=== PATIENT | female | born 1980 | race Caucasian/White ===

== ENCOUNTER 2024-07-17 15:40 | Outpatient (CLI) | payer BC, SELFPAY ==
--- NOTE | ~2024-07-17 | MM_ITS ---
EXAMINATION: MM screening sergio BI w celestino HISTORY: Screening TECHNIQUE: Craniocaudal and mediolateral oblique 3-D tomosynthesis images were obtained and synthetic 2-D images were generated. CAD analysis was submitted and interpreted. COMPARISON: No prior mammogram is available for comparison at this institution. BREAST PARENCHYMAL COMPOSITION: Dense: The breasts are extremely dense, which lowers the sensitivity of mammography. FINDINGS: There are asymmetries in the medial aspect of the left breast as well as superiorly in the left breast, obscured by fibroglandular tissue. No mammographic evidence for malignancy in the right breast. IMPRESSION: 1. Left breast asymmetries 2. Additional spot compression and mediolateral views with possible follow-up breast ultrasound recom mended. BI-RADS Category 0: Incomplete: Needs additional imaging evaluation. Reviewed, dictated and finalized at location B. IMPRESSION: 1. Left breast asymmetries 2. Additional spot compression and mediolateral views with possible follow-up b reast ultrasound recommended. BI-RADS Category 0: Incomplete: Needs additional imaging evaluation.
== END 2024-07-17 15:41 ==
PROVIDERS: PCP Physician Assistant; Visit Provider Physician Assistant
DX: Z12.31 Encounter for screening mammogram for malignant neoplasm of breast (principal); R92.8 Other abnormal and inconclusive findings on diagnostic imaging of breast
CPT/HCPCS: 77063; 77067

== ENCOUNTER 2024-08-15 08:23 | Outpatient (CLI) | payer BC, SELFPAY ==
--- NOTE | ~2024-08-15 | MMUS_ITS ---
EXAMINATION: MM diagnostic sergio LT w celestino, US breast LT limited HISTORY: Left breast asymmetry TECHNIQUE: Additional 3-D tomosynthesis images of the left breast were performed and synthetic 2-D im ages were generated. CAD analysis was submitted and interpreted. High resolution limited left breast ultrasound was performed. COMPARISON: 07/17/2024 BREAST PARENCHYMAL COMPOSITION:Dense: The breasts are extremely dense, which lowers the sensitivity o f mammography. FINDINGS: MAMMOGRAPHIC FINDINGS: Questionable partially obscured 11 mm lobulated mass at the upper left breast, which rises on ML view . No definite correlate seen on CC view. ULTRASOUND: Scanning of the upper outer left breast demonstrates an 8 mm simple cyst at the 10:00 position left b reast, 5 cm from the nipple. There is an additional 7 mm simple cyst at the 10:00 position 3 cm from the nipple. There is an additional 0.8 cm simple cyst at the 12:00 position left breast, 5 cm from th e nipple. IMPRESSION: No distinct evidence for malignancy. Subcentimeter cysts at the upper, inner left breast, as detaile d above. BI-RADS Category 2: Benign finding(s). Reviewed, dictated and finalized at location M. IMPRESSION: No distinct evidence for malignancy. Subcentimeter cysts at the upper, inner l eft breast, as detailed above. BI-RADS Category 2: Benign finding(s).
== END 2024-08-15 08:24 | disposition home or self-care (01) ==
LOC: MICIMG 08:24
PROVIDERS: PCP Physician Assistant; Visit Provider Physician Assistant
DX: R92.8 Other abnormal and inconclusive findings on diagnostic imaging of breast (principal)
CPT/HCPCS: 76642; 77061; 77065; G0279

== ENCOUNTER 2025-06-21 12:24 | Emergency (ER) | payer BC, SELFPAY ==
--- OUTSIDE RECORDS SUMMARY | 2025-06-21 12:27 | XMS_ITS | Patient Health Record ---
Author Organization [facility] [employer] Address [address] [facility] [address] [place] [address] Care Team Providers Care Saturation Equipment Operator Name Role Phone Kris Walker Unavailable [phone] Rudolph Yoder Unavailable [phone] Allergies No Known Allergies Reason For Referral No Information Medications Medication SIG (Take, Route, Frequency, Duration) Notes Start Date End Date Status Vitamin D Active buPROPion HCl ER (XL) 300 MG 1 tablet every morning Oral Once a day; Duration: 90 days Active Biotin Active Sertraline HCl 100 MG 1.5 tablet Oral Once a day; Duration: 90 days Active JUNEL FE .04/24 (28) *Reorder from [employer] for eRx and Interaction Alerts* 03/19/2024 Not-Taking SELMA 24 FE 1 MG-20 MCG (24)/75 MG (4) TABLET *Reorder from [employer] for eRx and Interaction Alerts* 03/19/2024 Not-Taking AUROVELA 24 FE 1 MG-20 MCG (24)/75 MG (4) TABLET *Reorder from [employer] for eRx and Interaction Alerts* 03/19/2024 Not-Taking Junel Fe 24 1 mg-20 mcg (24)/75 mg (4) Oral *Pick strength-form from [employer] for eRX* 03/19/2024 Not-Taking Iron 325 mg (65 mg iron) Oral *Pick strength-form from [employer] for eRX* 03/19/2024 Active Social History Sex Assigned At : Social History Observation Description Sex Assigned At Female Problems Problem Type SNOMED Code ICD Code Onset Dates Problem Status W/U Status Risk Notes Problem Mild recurrent major depression (47659200) Major depressive disorder, recurrent, mild (F33.0) 4 Active confirmed Problem Generalized anxiety disorder (41974945) Generalized anxiety disorder (F41.1) 4 Active confirmed Vital Signs Heart Rate 85 /min 04/06/2025 Height-cm 162.56 cm 04/06/2025 Blood pressure diastolic 67 mm Hg 04/06/2025 Weight-kg 69.85 kg 04/06/2025 Height 64.00 in 04/06/2025 Blood pressure systolic 97 mm Hg 04/06/2025 Weight 154 lbs 04/06/2025 BMI 26.43 kg/m2 04/06/2025 Encounters Encounter Location Date Provider Diagnosis [facility] [employer] [facility], [facility] [address] [place] [address] 01/08/2025 Rudolph Yoder Major depressive disorder, recurrent, mild F33.0 and Generalized anxiety disorder F41.1 [facility] [employer] [facility] [address] [place] [address] 04/06/2025 Kris Walker Encounter for screen ing for cardiovascular disorders Z13.6 ; Encounter for screening for depression Z13.31 ; Major depressive disorder, recurrent, mild F33.0 and Generalized anxiety disorder F41.1 Assessments Encounter Date Diagnosis (ICD Code) Assessment Notes Treatment Notes Treatment Clinical Notes Section Notes 01/08/2025 Major depressive disorder, recurrent, mild (ICD-10 - F33.0) 04/06/2025 Encounter for screening for cardiovascular disorders (ICD-10 - Z13.6) 04/06/2025 Encounter for screening for depression (ICD-10 - Z13.31) 01/08/2025 Generalized anxiety disorder (ICD-10 - F41.1) 04/06/2025 Major depressive disorder, recurrent, mild (ICD-10 - F33.0) 04/06/2025 Generalized anxiety disorder (ICD-10 - F41.1) 01/08/2025 Other 1. Major Depressive Disorder - currently rates her depression at 02/02. - Currently on Bupropion 300mg and Sertraline 150mg daily. - PHQ-9 score: 5, indicating mild depression. - Patient reports feeling stable on current medications. - Plan: a. Continue Bupropion 300mg and Sertraline 150mg daily. b. Refill prescriptions for 3 months. c. Schedule follow-up appointment in 3 months. 2. Anxiety - SERENA-7: 3 - current anxiety at 01/05 - Plan: Monitor anxiety levels during follow-up appointment. 3. Sleep - No significant issues reported. - Plan: Continue to monitor sleep patterns during follow-up appointments. 4. Substance Use - Denies marijuana use. - Reports minimal alcohol consumption (approximately one drink per month). - Plan: Continue to monitor substance use during follow-up appointments. 5. Gun Safety - Reports having a gun in a safe at home. - Plan: Reinforce importance of gun safety, including: a. Storing ammunition separately. b. Using gun locks. c. Maintaining a secure gun safe. 6. Overall Mental Health - Denies suicidal ideation, self-harm, hallucinations, delusions, or paranoia. - Plan: a. Continue to monitor mental health during follow-up appointments. b. Encourage patient to report any changes or concerns. 04/06/2025 Other Nikole Foley, an adult female patient with a history of depression and anxiety, presents for medication refill and follow-up. Major Depressive Disorder Assessment: Patient reports feeling pretty stable with current medication regimen. She denies any significant concerns regarding depression. Sleep patterns remain consistent with her baseline, reporting she is always able to sleep and always wanting to sleep. Energy levels are reported as okay. No mood swings or other depressive symptoms are reported. Plan: - Continue bupropion XL 300 mg PO daily - Continue sertraline 150 mg PO daily - Follow up in 6 months Generalized Anxiety Disorder Assessment: Patient denies any significant anxiety concerns beyond normal life stressors. No recent panic attacks reported. Current medication regimen appears to be effectively managing anxiety symptoms. Plan: - Continue current medication regimen as noted above - Follow up in 6 months Obstructive Sleep Apnea Assessment: Patient confirms continued use of CPAP for sleep apnea management. Plan: - Continue CPAP use as prescribed the note is transcribed using speech recognition software. It is a reflection of a visit with the patient. It might have some inaccuracy, including medication names and transcribing errors, though efforts have been made to correct them. Plan Of Treatment Next Appt Details Provider Name:Kris hughes, 10/06/2025 01:00:00 PM, [address] [address], [facility] [address], [place], [address], Insurance Providers Payer Name Payer Address Payer Phone Subscriber Number Group Number Insured Name Patient Relationship to Insured Coverage Start Date Coverage End Date [facility] [address] [place] [address] [id number] KIMI NIKOLE Self - patient is the insured Medical (General) History Medical History History ICD Code Problems: Generalized anxiety disorder Mild recurrent major depression Surgical History Surgery Date(Month/Year) Other 04/23/2012
--- OUTSIDE RECORDS SUMMARY | 2025-06-21 12:27 | XMS_ITS | Encounter Summary ---
Author Organization [facility] Address [address] [place] [address] Phone Care Team Providers Care Flow Coordinator Name Role Phone Shelton Campa MD Primary Care Provider [phone] Encounter Details Date Type Department Care Team (Late st Contact Info) Description 10/05/2023 [facility] [address] [place] [address] Magui Campa MD [address] [place] [id number] Social History Tobacco Use Types Packs/Day Years Used Date Smoking Tobacco: Never Smokeless Tobacco: Never Alcohol Use Standard Drinks/Week Comments Yes 1 (1 standard drink = 0.6 oz pur e alcohol) Comments Unknown Sex and Gender Information Value Date Recorded Sex Assigned at Not on file 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 [employer] Gender Identity Not on file Sexual Orientation Not on file documented as of this encounter Plan of Treatment Upcoming Encounters Date Type Department Care Team (Late st Contact Info) Description 09/01/2025 2:30 PM CDT Office Visit [facility] [address] [place] [phone] Fauzia Palacio, CALL CENTER SUPPORT CONSULTANT, CUTTING INSPECTOR [address] [place] [address] documented as of this encounter Procedures Procedure Name Priority Date/Time Associated Diagnosis Comments CHLAMYDIA & GC DNA PROBE ADULT Routine 10/05/2023 1:00 PM [employer] VAGINITIS SCREEN, MOLECULAR Routine 10/05/2023 1:00 PM [employer] PATHOLOGY CYTOLOGY CHILLER TECHNICIAN Routine 10/05/2023 1:00 PM [employer] HUMAN PAPILLOMA VIRUS (HPV) Routine 10/05/2023 1:00 PM [employer] CHLAMYDIA & GC DNA PROBE Routine 10/05/2023 1:00 PM [employer] documented in this encounter Results * CHLAMYDIA & GC DNA PROBE > 12 (10/05/2023 1:00 PM [employer]) CHLAMYDIA DNA NEGATIVE NEGATIVE 10/07/2023 12:03 PM [employer] [facility] Comment: Presumed negative for C. trachomatis. A negative result does not preclude C. trachomatis infection because results are dependent on adequate specimen collection, absence of inhibitors, and sufficient DNA to be detected. This test was performed using Polymerase Chain Reaction (PCR) on the [employer] 4800 System. GC DNA NEGATIVE NEGATIVE 10/07/2023 12:03 PM [employer] [facility] Comment: Presumed negative for N. gonorrhoeae. A negative result does not preclude N. gonorrhoeae infection because results are dependent on adequate specimen collection, absence of inhibitors, and sufficient DNA to be detected. This test was performed using Polymerase Chain Reaction (PCR) on the [employer] 4800 System. Other URINE / Unknown 10/05/2023 1 :00 PM [employer] 10/05/2023 8:48 PM [employer] us Magui Campa MD MICROBIOLOGY - GENERAL ORDERABL ES Final Result [facility] [address] [facility] [place] [address], * VAGINITIS SCREEN, MOLECULAR (10/05/2023 1:00 PM [employer]) TRICHOMONAS Negative Negative 10/05/2023 10:55 PM [employer] [facility] BACTERIAL VAGINOSIS Negative Negative 10/05/2023 10:55 PM [employer] [facility] VALERIA Negative Negative 10/05/2023 10:55 PM [employer] [facility] Other VAGINAL STRUCTURE / Unknown 10/05/2023 1:00 PM [employer] 10/05/2023 8:54 PM [employer] us Magui Campa MD MICROBIOLOGY - GENERAL ORDERABL ES Final Result [facility] [address] [place] [address], * HUMAN PAPILLOMA VIRUS (HPV) (10/05/2023 1:00 PM [employer]) HPV OTHER HIGH RISK TYPES, PCR NEGATIVE NEGATIVE 10/08/2023 3:20 PM [employer] [facility] Comment: The following Other High Risk types were not detected: 31, 33, 35, 39, 45, 51, 52, 56, 58, 59, 66, and 68. A negative high-risk HPV result does not exclude the possibility of future cytologic HSIL or underlying CIN2-3 or cancer. The presence of PCR inhibitors may cause false negative or invalid results. If concentrations of whole blood in the sample exceed 1.5% (dark red or brown coloration) in PreservCyt solution, there is a likelihood of obtaining a false-negative result. HPV TYPE 16 NEGATIVE NEGATIVE 10/08/2023 3:20 PM [employer] [facility] Comment: A negative high-risk HPV result does not exclude the possibility of future cytologic HSIL or underlying CIN2-3 or cancer. The presence of PCR inhibitors may cause false negative or invalid results. If concentrations of whole blood in the sample exceed 1.5% (dark red or brown coloration) in PreservCyt solution, there is a likelihood of obtaining a false-negative result. HPV TYPE 18 NEGATIVE NEGATIVE 10/08/2023 3:20 PM [employer] [facility] Comment: A negative high-risk HPV result does not exclude the possibility of future cytologic HSIL or underlying CIN2-3 or cancer. The presence of PCR inhibitors may cause false negative or invalid results. If concentrations of whole blood in the sample exceed 1.5% (dark red or brown coloration) in PreservCyt solution, there is a likelihood of obtaining a false-negative result. Other 10/05/2023 1:00 PM [employer] 10/05/2023 8:53 PM [employer] Narrative [facility] - 10/08/2023 3:20 PM [employer] Performed by Real-Time Polymerase Chain Reaction (PCR) on the [employer] 4800. This assay has been validated for use with post-aliquot samples from the [employer] T5000 processor. us Magui Campa MD LAB SEND OUTS Final Result [facility] [address] [place] [address], * PATHOLOGY CYTOLOGY CHILLER TECHNICIAN (10/05/2023 1:00 PM [employer]) SPECIMEN ADEQUACY Satisfactory for evaluation. Endocervical/transf ormation zone component is absent. 10/14/2023 9:27 PM [employer] [facility] DESCRIPTIVE DIAGNOSIS NEGATIVE FOR INTRAEPITHELIAL LESIONS OR MALIGNANCY. 10/14/2023 9:27 PM [employer] [facility] at [address] [employer] Automated Examination Analysis of this sample has been assisted by an automated imaging and review system ([employer] System, [employer], [place], [place]). This case is further evaluated and finalized by a employee's representative and/or pathologist. 10/14/2023 9:27 PM [employer] [facility] Disclaimer The PAP smear is a screening test designed to detect cancerous or precancerous cells of the uterine cervix. It is one of the best means available for detection of cervical cancer but still carries an inherent false-negative rate. The consequences of a false-negative PAP result can be minimized by adhering to current screening guidelines. The following are general guidelines recommended by the ACS, ASCP, ASCCP, and ACOG: PAP testing is recommended every three years for women 21-29, Co-Testing, a PAP test in conjunction with an HPV (Human Papillomavirus) test for women ages 30-65, and no PAP or HPV testing for women under the age of 21 or older than 65 unless clinically indicated. 10/14/2023 9:27 PM [employer] [facility] Case Report Gynecologic Cytology Report Case: [id number] Authorizing Provider: Magui Campa MD Collected: 10/05/2023 01:00 PM Ordering Location: [facility] Received: 10/09/2023 09:01 AM [facility] First Screen: Freida Mcgill Specimen: TP Screen, Cervix/Endocervix 10/14/2023 9:27 PM [employer] [facility] Other CERVIX UTERI STRUCTURE / Unknown 10/05/2023 1:00 PM [employer] 10/09/2023 9:01 AM [employer] us Magui Campa MD PATHOLOGY/CYTOLOGY ORDERABLES F inal Result [facility] [address] [place] [address], documented in this encounter Visit Diagnoses Not on filedocumented in this encounter Care Teams Flow Coordinator Relationship Specialty Start Date End Date Shelton Campa MD [address] [facility] [address] [place] [address] PCP - General General Surgery 01/13/20 documented as of this encounter
--- OUTSIDE RECORDS SUMMARY | 2025-06-21 12:27 | XMS_ITS | Encounter Summary ---
Author Organization [facility] Address [address] [place] [address] Phone Care Team Providers Care Material Handler 2Nd Shift Name Role Phone Shelton Campa MD Primary Care Provider [phone] Encounter Details Date Type Department Care Team (Late Contact Info) Description 10/03/2023 [facility] [address] [place] [address] Shelton Campa MD [address] [place] [address] [place] [address] Social History Tobacco Use Types Packs/Day Years Used Date Smoking Tobacco: Never Smokeless Tobacco: Never Alcohol Use Standard Drinks/Week Comments Yes 1 (1 standard drink = 0.6 oz pur e alcohol) Comments Unknown Sex and Gender Information Value Date Recorded Sex Assigned at Not on file 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 Gender Identity Not on file Sexual Orientation Not on file documented as of this encounter Plan of Treatment Upcoming Encounters Date Type Department Care Team (Late st Contact Info) Description 09/01/2025 2:30 PM CDT Office Visit [facility] [address] [place] [address] Fauzia Palacio, NEWS CLERK, ACCIDENT INVESTIGATOR [address] [place] [address] documented as of this encounter Procedures Procedure Name Priority Date/Time Associated Diagnosis Comments ANTI THYROID PEROXIDASE ANTIBODY Routine 10/03/2023 8:41 AM PIECER documented in this encounter Results * ANTI THYROID PEROXIDASE ANTIBODY (10/03/2023 8:41 AM PIECER) Thyroid peroxidase antibody <3 <6 IU/mL [facility]CH [id number] F 10/04/2023 12:47 AM [facility]ER [facility] Blood 10/03/2023 8:41 AM PIECER 10/03/2023 8:54 PM PIECER us Shelton Campa MD CHEMISTRY ORDERABLES Final Re sult [facility] [address] [place] [address], documented in this encounter Visit Diagnoses Not on filedocumented in this encounter Care Teams Material Handler 2Nd Shift Relationship Specialty Start Date End Date Shelton Campa MD [address] [place] [address] [address] [place], [place] [address] PCP - General General Surgery 01/13/20 documented as of this encounter
--- OUTSIDE RECORDS SUMMARY | 2025-06-21 12:27 | XMS_ITS | Encounter Summary ---
Author Organization [facility] Address [address] [facility] [place] [address] Phone Care Team Providers Care Gis Developer Name Role Phone Shelton Campa MD Primary Care Provider [phone] Encounter Details Date Type Department Care Team ([facility] Contact Info) Description 04/13/2022 [facility] [address] [place] [address] Shelton Campa MD [address] [place] [address] [place] [address] Social History Tobacco Use Types Packs/Day Years Used Date Smoking Tobacco: Never Assessed Comments Unknown Sex and Gender Information Value Date Recorded Sex Assigned at Not on file Legal Sex Female 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 Gender Identity Not on file Sexual Orientation Not on file documented as of this encounter Plan of Treatment Upcoming Encounters Date Type Department Care Team ([facility] Contact Info) Description 09/01/2025 2:30 PM CDT Office Visit [facility] [address] [place] [phone] Fauzia Palacio, PHYSICIST NUCLEAR, EXTRUDING PRESS OPERATOR [address] [place] [address] documented as of this encounter Procedures Procedure Name Priority Date/Time Associated Diagnosis Comments TRIIODOTHYRININE (T3) FREE Routine 04/13/2022 8:55 AM CDT documented in this encounter Results * TRIIODOTHYRININE (T3) FREE (04/13/2022 8:55 AM CDT) FREE T3 2.3 1.6 - 3.9 pg/mL [facility] ARCH [id number] F 04/13/2022 10:53 PM CDT [facility] Blood 04/13/2022 8:55 AM CDT 04/13/2022 8:45 PM CDT us Shelton Campa MD CHEMISTRY ORDERABLES Final Re [facility]ult [facility] [address] [place] [address], documented in this encounter Visit Diagnoses Not on filedocumented in this encounter Care Teams Gis Developer Relationship Specialty Start Date End Date Shelton Campa MD [address] [facility] [address] [place] [address] PCP - General General Surgery 01/13/20 documented as of this encounter
--- OUTSIDE RECORDS SUMMARY | 2025-06-21 12:27 | XMS_ITS | Encounter Summary ---
Author Organization [facility] Address [address] [place] [address] Phone Care Team Providers Care Rn Hyperbaric Name Role Phone Shelton Campa MD Primary Care Provider [phone] Reason for Visit * Reason Onset Date Comments Obstructive Sleep Apnea 12/19/2024 CPAP sup ply order Encounter Details Date Type Department Care Team (Late st Contact Info) Description 12/19/2024 Telephone [facility] [address] [place] [address] Rep, [facility] Intake Obstructive Sleep Apnea (CPAP supply order) Social History Tobacco Use Types Packs/Day Years Used Date Smoking Tobacco: Never Smokeless Tobacco: Never Alcohol Use Standard Drinks/Week Comments Yes 1 (1 standard drink = 0.6 oz pur e alcohol) Comments Unknown Sex and Gender Information Value Date Recorded Sex Assigned at Not on file Legal Sex Female 1:30 PM SOAKER Gender Identity Not on file Sexual Orientation Not on file documented as of this encounter Miscellaneous Notes * Telephone Encounter - Joe Willis MD - 12/19/2024 3:20 PM SOAKER Order signed, thanks. ER * Telephone Encounter - Martina Fang RN - 12/19/2024 12:20 PM CST [facility] requesting new CPAP supply order Last office visit: 10/09/23 Follow Up: PRN Next visit scheduled: none currently scheduled - will route to [facility]/FOA pool to contact patient to schedule follow up Order pended for provider approval Addendum 12/19/24 at 1420: Patient contacted nurse line requesting CPAP supplies to be sent Routed to Dr Willis in ACE Palacio's absence Plan 1. CPAP pressure adjusted at today's visit (4-7 cm water pressure). 2. Please call if there are issues tolerating the above pressure changes. 3. Continue to wear CPAP all hours of sleep. If you continue to have issues removing mask inadvertently, may benefit from setting an alarm 3-4 hours after going to sleep to reapply mask. 4. Aim for consistent 7-8 hour sleep opportunity nightly. 5. Please call [facility] if wanting to discuss medically managing hypersomnia. 6. Follow up with [facility] as needed. ER ER * Telephone Encounter - Alva Pan - 12/19/2024 12:18 PM SOAKER Patient is requesting CPAP supplies. Could we get a CPAP supply order for this patient? Previous appt 2022, so message sent to pt to make new appt. Please and thanks. ER documented in this encounter Plan of Treatment Upcoming Encounters Date Type Department Care Team (Late st Contact Info) Description 09/01/2025 2:30 PM CDT Office Visit [facility] [address] [place] [id number] Fauzia Palacio, ACE, AIRCRAFT RESTORER [address] [place] [address] documented as of this encounter Visit Diagnoses Diagnosis DEE DEE (obstructive sleep apnea)- Primary Obstructive sleep apnea (adult) (pediatric) documented in this encounter Care Teams Rn Hyperbaric Relationship Specialty Start Date End Date Shelton Campa MD [address] [place] [address] [address] [place] [address] PCP - General General Surgery 01/13/20 documented as of this encounter
--- OUTSIDE RECORDS SUMMARY | 2025-06-21 12:27 | XMS_ITS | Clinical Summary ---
Author Organization [facility] Address [address] [facility] [address] [place] [address] Phone Care Team Providers Care Venetian Blind Installer Name Role Phone Shelton Campa MD Primary Care Provider [phone] Allergies No known active allergies Medications buPROPion HCl (WELLBUTRIN XL PO) Take 350 mg by mouth daily. Active VITAMIN D PO Take by mouth. Active biotin 300 MCG Tablet Take 300 mcg by mouth daily. Active Ferrous Sulfate (IRON PO) Take by mouth. Active other by Other route. control Active Multiple Vitamin (MULTIVITAMIN ADULT PO) Take by mouth. Active sertraline (ZOLOFT) 100 MG Tablet Take 150 mg by mouth daily. Active Burdick-3 Fatty Acids (FISH OIL PO) Take by mouth. Active Active Problems Problem Noted Date Diagnosed Date Obstructive sleep apnea 07/03/2023 Overview (07/03/2023): 03/13/23 home sleep test AHI 9/hr, oxygen leighann 89% @155lb Anxiety state 01/29/2013 Episodic mood disorder 01/29/2013 Social History Tobacco Use Types Packs/Day Years Used Date Smoking Tobacco: Never Smokeless Tobacco: Never Tobacco Cessation:Counseling Given: Not Answered Alcohol Use Standard Drinks/Week Comments Yes 1 (1 standard drink = 0.6 oz pur e alcohol) Comments Unknown Sex and Gender Information Value Date Recorded Sex Assigned at Not on file Legal Sex Female 1:30 PM METAL MINER Gender Identity Not on file Sexual Orientation Not on file Last Filed Vital Signs Vital Sign Reading Time Taken Comments Blood Pressure 112/68 10/09/2023 12:50 PM METAL MINER Pulse 84 10/09/2023 12:50 PM METAL MINER Temperature 36.5 C (97.7 F) 08/06/2021 8:30 AM CDT Respiratory Rate 16 08/06/2021 8:30 AM CDT Oxygen Saturation 100% 08/06/2021 8:30 AM CDT Inhaled Oxygen Concentration - - Weight 71.3 kg (157 lb 3.2 oz) 10/09/2023 12:50 PM METAL MINER Height 162.6 cm (5' 4) 10/09/2023 12:50 PM METAL MINER Body Mass Index 26.98 10/09/2023 12:50 PM METAL MINER Plan of Treatment Upcoming Encounters Date Type Department Care Team (Late st Contact Info) Description 09/01/2025 2:30 PM CDT Office Visit [facility] [address] [place] [address] AndFauzia pleitez, CORE FINISHER, STRESS ANALYST [address] [place] [address] Health Maintenance Due Date Last Done Comments Hepatitis C Virus (HCV) Screening 1981 Human Papillomavirus (HPV) Immunization (1 - 3-dose series) 1996 Mammogram 01/26/2016 01/25/2015 SARS-COV-2 Immunization ( season) 2024 12/07/2021, 01/06/2021, 12/09/2020 Influenza Immunization (#1) 07/27/202508/26, 10/09/2016, 09/23/2013, Additional history exists Pap Smear 10/05/2026 10/05/2023, 02/03/2020 Cervical Cancer Screening (CCS) 10/05/2028 HPV/Cotest 10/05/2028 10/05/2023 Respiratory Syncytial Virus (RSV) Immunization (Adult) (1 - 1-dose 75+ series) 2056 Hepatitis B Immunization Completed 000, 02/17/2000, 01/04/2000 Discussion re Starting/Frequency of Mammograms Completed 01/25/2015 DTaP/Tdap/Td Immunization Discontinued 07/16/2024, TdaP Immunization Completed 07/16/2024, 09/23/2007 Meningococcal Immunization (ACWY) Aged Out No longer eligible based on patient's age to complete this topic Pneumococcal Immunization Combined Aged Out No longer eligible based on patient's age to complete this topic Rotavirus Immunization Aged Out No lo nger eligible based on patient's age to complete this topic Procedures Procedure Name Priority Date/Time Associated Diagnosis Comments HUMAN PAPILLOMA VIRUS (HPV) Routine 10/05/2023 1:00 PM METAL MINER PATHOLOGY CYTOLOGY PLASTIC JIG AND FIXTURE BUILDER Routine 10/05/2023 1:00 PM METAL MINER from Last 3 Months or Most Recently Relevant to Health Maintenance Results * PATHOLOGY CYTOLOGY PLASTIC JIG AND FIXTURE BUILDER (10/05/2023 1:00 PM METAL MINER) SPECIMEN ADEQUACY Satisfactory for evaluation. Endocervical/transf ormation zone component is absent. 10/14/2023 9:27 PM METAL MINER [facility] DESCRIPTIVE DIAGNOSIS NEGATIVE FOR INTRAEPITHELIAL LESIONS OR MALIGNANCY. 10/14/2023 9:27 PM METAL MINER [facility] at [address] METAL MINER Automated Examination Analysis of this sample has been assisted by an automated imaging and review system ([employer] Imaging System, [employer], [place], [place]). This case is further evaluated and finalized by a offset printer and/or pathologist. 10/14/2023 9:27 PM METAL MINER [facility] Disclaimer The PAP smear is a screening [...] 65 unless clinically indicated. 10/14/2023 9:27 PM METAL MINER [facility] Case Report Gynecologic Cytology Report Case: [id number] Authorizing Provider: Magui Campa MD Collected: 10/05/2023 01:00 PM Ordering Location: [facility] Received: 10/09/2023 09:01 AM [facility] First Screen: Betty Mcgillnemontrell Leon Specimen: TP Screen, Cervix/Endocervix 10/14/2023 9:27 PM METAL MINER [facility] Other CERVIX UTERI STRUCTURE / Unknown 10/05/2023 1:00 PM METAL MINER 10/09/2023 9:01 AM METAL MINER us Magui Campa MD PATHOLOGY/CYTOLOGY ORDERABLES F inal Result [facility] [address] [id number], * HUMAN PAPILLOMA VIRUS (HPV) (10/05/2023 1:00 PM METAL MINER) HPV OTHER HIGH RISK TYPES, PCR NEGATIVE NEGATIVE 10/08/2023 3:20 PM METAL MINER [facility] Comment: The following Other High Risk types [...] TYPE 16 NEGATIVE NEGATIVE 10/08/2023 3:20 PM METAL MINER [facility] Comment: A negative high-risk HPV result does [...] TYPE 18 NEGATIVE NEGATIVE 10/08/2023 3:20 PM METAL MINER [facility] Comment: A negative high-risk HPV result does not exclude the possibility of future cytologic HSIL or underlying CIN2-3 or cancer. The presence of PCR inhibitors may cause false negative or invalid results. If concentrations of whole blood in the sample exceed 1.5% (dark red or brown coloration) in PreservCyt solution, there is a likelihood of obtaining a false-negative result. Other 10/05/2023 1:00 PM METAL MINER 10/05/2023 8:53 PM METAL MINER Narrative [facility] - 10/08/2023 3:20 PM METAL MINER Performed by Real-Time Polymerase Chain Reaction (PCR) on the [employer] 4800. This assay has been validated for use with post-aliquot samples from the [employer] processor. Magui Campa MD LAB SEND OUTS Final Result [facility] [address] [place] [address], from Last 3 Months or Most Recently Relevant to Health Maintenance Insurance [facility] Care Teams Venetian Blind Installer Relationship Specialty Start Date End Date Shelton Campa MD [address] [facility] [address] [place] [address] PCP - General General Surgery 01/13/20
[2025-06-21 12:32] VITALS: BP 107/69; PULSE 83; RESP 18; TEMP 36.4; O2SAT 99
--- NOTE | 2025-06-21 12:46 | ED_ITS ---
HPI - Ear Problem General Chief complaint: Ear Stated complaint: ear infection Time Seen by Provider: 06/21/25 12:27 Source: patient Mode of arrival: ambulatory Limitations: no limitations History of Present Illness HPI Narrative: Patient is a 44-year-old female who presents with right jaw pain that started Sunday but states yesterday a folic more ear pressure pain. States it feels like there is fluid in ear. Denies any congestion, sore throat, cough, fever, chills, nausea, vomiting, diarrhea. Patient denies any seasonal allergies. Has not taken anything for symptoms. Does wear hearing aids. MD Complaint: ear pain Related Data Home Medications ?Medication ?Instructions ?Recorded ?Confirmed ?Last Taken ?Type bupropion HCl 300 mg 24 hr tablet, 300 mg PO DAILY 03/14/24 06/21/25 Unknown History extended release sertraline 100 mg tablet 150 mg PO DAILY 02/20/25 06/21/25 Unknown History Allergies Allergy/AdvReac Type Severity Reaction Status Date / Time No Known Allergies Allergy Verified 06/21/25 12:26 Review of Systems Review of Systems: All systems reviewed & are unremarkable except as noted in HPI and below Constitutional: Constitutional: Denies body ache(s), Denies chills, Denies fever(s), Denies headache(s) and Denies malaise Eyes: Eyes: Denies blurry vision, Denies eye discharge and Denies irritation ENT: Reports otalgia, Denies headache(s), Denies nasal congestion, Denies nasal discharge and Denies sore throat Cardiovascular: Cardiovascular: Denies chest pain, Denies edema, Denies palpitations and Denies dyspnea on exertion Respiratory: Respiratory: Denies cough and Denies dyspnea on exertion Gastrointestinal: Gastrointestinal: Denies abdominal pain, Denies diarrhea, Denies nausea and Denies vomiting Musculoskeletal: Musculoskeletal: Denies back pain, Denies arthralgias and Denies muscle weakness Integumentary/Breasts: Skin/Breast: Denies pruritus and Denies rash Neurologic: Denies headache(s) Psychiatric: Psychiatric: Reports no additional psychiatric complaints Endocrine: Endocrine: Denies palpitations PMFSH Past Medical History Medical History Bilateral hearing loss Obstructive sleep apnea of adult Vitamin D deficiency SERENA (generalized anxiety disorder) Iron deficiency anemia, unspecified Mixed hyperlipidemia Surgical History Surgical History History of eye surgery retina laser 2011 History of section 2011 Family History Family History Mother Anxiety and depression Father No problems noted. Grandparent Anxiety and depression Ovarian cancer Cerebrovascular accident Thyroid disorder Social History Social History Smoking status: Never smoker Alcohol intake: current Substance use: never Substance use type: does not use Do You Feel Safe in your Home?: Yes Lack of Transportation: No Lack of Food: Never True Current Housing: I Have Housing Concerned About Future Housing: No Difficulty Paying Gas/Electric Bills: No Difficulty Paying for Meds: No Currently Unemployed: YES Education: Bachelor's Degree Difficulty w/ Childcare or Family Care: No Living arrangements: with family Occupation/Education: unemployed Gender identity (if verbalized by the patient): Female Sexual Orientation (if Verbalized by the Patient): Straight or Heterosexual Spiritual care concerns: No Comments At time of signature, agree with nursing past medical, surgical, social and family history. There is no relevant family history pertinent to the presenting complaint? Exam Const: General: cooperative, healthy appearing, no acute distress and well nourished Nutritional Appearance: well nourished Orientation/consciousness: patient oriented x3 Limitations: no limitations HENMT: Head: normal to inspection, normocephalic and atraumatic Ears: hearing grossly normal bilaterally, EAC's normal, no periauricular adenopathy and TM abnormal with fluid behind the TM on the right Face/Nose/Sinus: Normal external nose present, Normal nares present, Normal nasal mucous membranes and turbinates present, No nasal discharge present, normal facial exam and sinuses nontender Face and sinus: normal facial exam and sinuses nontender Mouth: Yes Normal oral and palatal mucosa present, Yes lip normal, Yes tongue normal and Yes moist mucous membranes Throat: posterior oropharynx normal, tonsils normal and uvula midline Eyes: General: appearance normal, both eyes and all related structures Alignment and Position: alignment normal and position normal Eyelids: eyelids normal Pupils: Equal, round and reactive pupils present EOM: EOMs intact bilaterally Neck: Neck: normal visual inspection, full ROM, no lymphadenopathy and supple Chest: Chest palpation & inspection: normal inspection of the chest Resp: Effort & Inspection: normal respiratory effort and able to speak in complete sentences Auscultation: clear to auscultation bilaterally, no crackles, no rales, no rhonchi and no wheezes Cardio: Rate: regular rate Rhythm: regular rhythm Heart sounds: S1 normal heart sound present and S2 normal heart sound present Skin: General skin exam: normal color and no rashes or lesions noted Neuro: General: patient oriented x3 and moves all extremities Cranial nerves: Yes Equal, round and reactive pupils present Cognition (Neuro): normal cognition Speech: normal speech Gait exam (Neuro): Normal gait present Extrem: General: normal to inspection and full ROM Psych: Appearance: grossly normal and well kempt Mental Status: mental status grossly normal Speech and movement: Normal speech and movement present Course Course Emergency Course: Patient is aware of diagnosis, understands and agrees to treatment plan.? Anticipatory guidance given.? Patient agrees to follow-up as directed and is aware of reasons to seek care at the emergency department.? Portions of this record may have been created with voice recognition software? Level of Care: Express Care Visit Vital Signs Vital signs: Vital Signs Temperature 36.4 C L 06/21/25 12:32 Pulse Rate 83 06/21/25 12:32 Respiratory Rate 18 06/21/25 12:32 Blood Pressure 107/69 06/21/25 12:32 Pulse Oximetry 99 06/21/25 12:32 Oxygen Delivery Room Air 06/21/25 12:32 Temperature 36.4 C L 06/21/25 12:32 Pulse Rate 83 06/21/25 12:32 Respiratory Rate 18 06/21/25 12:32 Blood Pressure 107/69 06/21/25 12:32 Pulse Oximetry 99 06/21/25 12:32 Oxygen Delivery Room Air 06/21/25 12:32 Reviewed Medical Decision Making MDM Narrative Medical decision making narrative: Pt well hydrated appearing, in no respiratory distress, hemodynamically stable. Recommend supportive care. The patient is stable at time of discharge the clinical impression was discussed and the patient was given the opportunity to ask questions, which were addressed as completely as possible given the information available at present. Anticipatory guidance and return to care precautions were discussed and the importance of primary care follow-up was stressed and encouraged. The patient voiced understanding of the plan, indications to return, and the need for follow-up. Exam findings show no acute concerns or changes Patient is appropriate for outpatient treatment and follow-up. Differential diagnosis considered: otitis media, otitis externa, otitis effusion, foreign body, cerumen impaction, viral syndrome Medical Records Medical records reviewed: Yes I reviewed the external patient's medical records. Vital Signs Vital Signs: Vital Signs Temperature 36.4 C L 06/21/25 12:32 Pulse Rate 83 06/21/25 12:32 Respiratory Rate 18 06/21/25 12:32 Blood Pressure 107/69 06/21/25 12:32 Pulse Oximetry 99 06/21/25 12:32 Oxygen Delivery Room Air 06/21/25 12:32 Temperature 36.4 C L 06/21/25 12:32 Pulse Rate 83 06/21/25 12:32 Respiratory Rate 18 06/21/25 12:32 Blood Pressure 107/69 06/21/25 12:32 Pulse Oximetry 99 06/21/25 12:32 Oxygen Delivery Room Air 06/21/25 12:32 Discharge Plan Discharge Clinical Impression: Acute effusion of right ear Patient Disposition: Home Condition: Stable Instructions: Fluid In The Ear (Serous Otitis Media) (ED) Additional Instructions: -For pain/fever, you may take: Tylenol 650-1000mg by mouth every 4-6 hours. Do not exceed 4000mg in 24 hours. Advil (Ibuprofen) 600 mg by mouth every 6 hours. Do not exceed 2400mg in 24 hours. 8 AM: Tylenol 11 AM: Ibuprofen 2 PM: Tylenol 5 PM: Ibuprofen 8 PM: Tylenol 11 PM: Ibuprofen 2 AM: Tylenol 5 AM: Ibuprofen -Antihistamine medication such as Benadryl/Zyrtec at night and Claritin/Dunia during the day can help improve symptoms. -Use Flonase twice a day for 5 days then daily to help reduce the inflammation and dry up your sinuses. Call your Primary Care Doctor and make a follow-up appointment in 3 days. If your cough worsens, you develop a fever greater than 103, you develop shaking chills, a fast heartbeat, trouble breathing and/or feel you are are breathing much faster than usual, call your Primary Care Doctor or go to the ER. Patient Language: Portuguese Prescriptions: New fluticasone propionate [Flonase Allergy Relief] 50 mcg/actuation spray,suspension 1 spray intranasal DAILY Qty: 16 0RF Rx Instructions: administer into each nostril loratadine 10 mg tablet 10 mg PO DAILY Qty: 30 0RF No Action bupropion HCl 300 mg tablet extended release 24 hr 300 mg PO DAILY sertraline 100 mg tablet 150 mg PO DAILY Follow-up/Referrals: Celia Samson PA-C [Primary Care Provider] - 3 Days Time of Disposition: 12:57
== END 2025-06-21 12:59 | disposition home or self-care (01) ==
PROVIDERS: Emergency Provider Nurse Practitioner Family
DX: H65.91 Unspecified nonsuppurative otitis media, right ear (principal); E78.2 Mixed hyperlipidemia
CPT/HCPCS: 99213; G0463